=== PATIENT | female | born 2005 | race African-American/Black ===

== ENCOUNTER 2023-07-12 19:33 | Emergency (ER) | payer OTHER ==
[2023-07-12 20:06] VITALS: BP 118/63; PULSE 74; RESP 18; TEMP 98; BMI 20.2
[2023-07-12] MEDS ORDERED: ACETAMINOPHEN 1000 MG/100 ML BAG IVPB ONE (20:32)
[2023-07-12] MEDS ORDERED: SODIUM CHLORIDE 1,000 ML IV STA (20:32)
[2023-07-12] MEDS ORDERED: ONDANSETRON 4 MG/2 ML VIAL IVPUSH ONE (20:32)
[2023-07-12] MEDS ORDERED: ACETAMINOPHEN INJECTION 100 ML IVPB ONE (20:35)
[2023-07-12] MEDS ORDERED: ONDANSETRON 4 MG/2 ML VIAL ONE (20:35)
[2023-07-12 21:11] LABS: BASO % 0.8 % (0-2.0); EOS % 0.6 % (0-4.5); HEMATOCRIT 39.3 % (32.4-45.2); LYMPH % 32.8 % (8-40); MCH 32.1 pg (25.7-33.7); MCHC 33.1 g/dl (32.0-36.0); MEAN PLT VOLUME 7.7 fl (7.5-11.1); MONO % 3.4 % (3.8-10.2); NEUT % 62.4 % (42.8-82.8); PLATELET COUNT 332 10^3/uL (134-434); RBC 4.06 M/mm3 (3.60-5.2); RDW 14.3 % (11.6-15.6)
[2023-07-12 21:15] LABS: EPI CELLS 9 /uL (0-25.1); HYALINE CASTS 0 /uL (0-3.1); URINE APPEARANCE CLEAR; URINE BACTERIA 273 /uL (0-1359); URINE BILIRUBIN NEGATIVE (NEGATIVE); URINE COLOR YELLOW; URINE GLUCOSE (UA) NEGATIVE (NEGATIVE); URINE KETONE TRACE (NEGATIVE); URINE LEUK ESTERASE NEGATIVE (NEGATIVE); URINE NITRITE NEGATIVE (NEGATIVE); URINE PROTEIN NEGATIVE (NEGATIVE); URINE RBC 14 /uL (0-23.9); URINE UROBILINOGEN 0.2 mg/dL (0.2-1.0); URINE WBC 6 /uL (0-25.8)
[2023-07-12 21:16] LABS: HCG,QUALITATIVE URINE Negative
[2023-07-12 21:19] LABS: INR 1.06 (0.83-1.09); PROTHROMBIN TIME (PATIENT) 12.3 SEC (9.7-13.0)
[2023-07-12 21:21] LABS: ACTIVATED PTT 27.7 SECONDS (25.2-36.5)
[2023-07-12 21:45] LABS: ALBUMIN 4.1 g/dl (3.4-5.0); ALK PHOS 77 U/L (45-117); ANION GAP -2 mmol/L (4-13); BILIRUBIN,TOTAL 0.6 mg/dL (0.2-1); BLOOD UREA NITROGEN 9.5 mg/dL (7-18); CHLORIDE 108 mmol/L (98-107); CO2 23 mmol/L (21-32); CREATININE 0.7 mg/dL (0.55-1.3); GLUCOSE,RANDOM 78 mg/dL (74-106); POTASSIUM > 10.0 mmol/L (3.5-5.1); SGOT/AST 79 U/L (15-37); SGPT/ALT 18 U/L (13-61); SODIUM 130 mmol/L (136-145); TOT PROT 8.4 g/dl (6.4-8.2)
== END 2023-07-13 00:37 | disposition home or self-care (01) ==
LOC: JER 19:33
PROC: 3E033NZ Introduction of Analgesics, Hypnotics, Sedatives into Peripheral Vein, Percutaneous Approach (ICD-10-PCS; principal; 2023-07-12)
PROC: 3E033GC Introduction of Other Therapeutic Substance into Peripheral Vein, Percutaneous Approach (ICD-10-PCS; 2023-07-12)
PROC: 3E0337Z Introduction of Electrolytic and Water Balance Substance into Peripheral Vein, Percutaneous Approach (ICD-10-PCS; 2023-07-12)
DX: R10.31 Right lower quadrant pain (principal); R11.0 Nausea; M54.50 Low back pain, unspecified
CPT/HCPCS: 36415; 74177-TC; 76830-TC; 80053; 81003; 84132; 84703; 85025; 85610; 85730; 87086; 96361; 96374; 96375; 99285-25